=== PATIENT | female | born 1950 | race Caucasian/White ===

== ENCOUNTER 2016-02-21 15:22 | Emergency (ER) | payer OTHER ==
[~2016-02-21] VITALS: Wt 104.3 kg
[~2016-02-21 15:22] MED LIST: LEVOFLOXACIN500 MG PO; PERCOCET 325 MG1 TA7 PO
== END 2016-02-21 15:57 | disposition home or self-care (01) ==
LOC: ED 15:22
DX: S93.601A Unspecified sprain of right foot, initial encounter (principal); Z88.1 Allergy status to other antibiotic agents; Z88.5 Allergy status to narcotic agent; Z90.49 Acquired absence of other specified parts of digestive tract; W10.9XXA Fall (on) (from) unspecified stairs and steps, initial encounter; Y93.89 Activity, other specified; Y92.9 Unspecified place or not applicable; Y99.9 Unspecified external cause status